=== PATIENT | male | born 1965 | race Caucasian/White ===

== ENCOUNTER 2025-03-01 13:01 | Emergency (ER) | payer BC, MEDICARE ==
[~2025-03-01 13:01] MED LIST: Iopamidol-370 76% 500 ML MDV (1 ML CHARGE) ONE
[2025-03-01] MEDS ORDERED: Prochlorperazine 10 MG/2 ML VIAL ONE (13:38)
[2025-03-01 13:54] LABS: #Basophils Less than 0.03 10x3/uL (0.0-0.2); #Eosinophils 0.11 10x3/uL (0.0-0.7); #Monocytes 0.37 10x3/uL (0.11-0.59); #Neutrophils 7.26 10x3/uL (1.40-6.50); %Basophils 0.2 % (0.0-1.0); %Eosinophils 1.3 % (0.0-10.0); %Lymphocytes 4.4 % (21.0-51.0); %Monocytes 4.5 % (0.0-10.0); %Neutrophils 89.1 % (42.0-75.0); Hematocrit 48.4 % (42.0-52.0); Hemoglobin 15.2 g/dL (14.0-18.0); Mean Corpuscular Hemoglobin 26.5 pg (27.0-31.0); Mean Corpuscular Volume 84.5 fL (78.0-98.0); Platelet Count 116 10x3/uL (130-400); Red Blood Cell (RBC) Count 5.73 mill/uL (4.70-6.10); White Blood Cell (WBC) Count 8.16 10x3/uL (4.8-10.8)
[2025-03-01 14:00] LABS: ALT (SGPT) 226 U/L (Less than 45); AST (SGOT) 161 U/L (11-34); Albumin 3.1 g/dL (3.1-4.5); Alkaline Phosphatase 135 U/L (40-110); Anion Gap 17 mmol/L (10-20); BUN (Urea Nitrogen) 23 mg/dL (8.4-25.7); Bilirubin, Total 2.0 mg/dL (0.3-1.2); Calc. Creatinine Clearance 0 mL/min (70-130); Calcium 10.1 mg/dL (7.8-10.44); Carbon Dioxide 26 mmol/L (22-29); Chloride 99 mmol/L (98-107); Globulin 4.4 g/dL (2.4-3.5); Glucose 274 mg/dL (70-105); Lipase 27 U/L (8-78); Potassium 4.0 mmol/L (3.5-5.1); Sodium 138 mmol/L (136-145)
[2025-03-01 14:24] LABS: Macrocytosis SLIGHT = 6-15 cells HPF (0-5); Platelet Adequacy Comment Platelets Decreased; Polychromasia SLIGHT = 2-3 cells HPF (0-2)
== END 2025-03-01 17:43 | disposition home or self-care (01) ==
LOC: ERS 13:01
DX: R51.9 Headache, unspecified (principal); R94.5 Abnormal results of liver function studies; R03.0 Elevated blood-pressure reading, without diagnosis of hypertension; E11.22 Type 2 diabetes mellitus with diabetic chronic kidney disease; N18.4 Chronic kidney disease, stage 4 (severe); R29.700 NIHSS score 0; D69.6 Thrombocytopenia, unspecified; I25.2 Old myocardial infarction; Z79.4 Long term (current) use of insulin; Z79.85 Long-term (current) use of injectable non-insulin antidiabetic drugs; Z79.899 Other long term (current) drug therapy; Z79.82 Long term (current) use of aspirin; Z79.01 Long term (current) use of anticoagulants
CPT/HCPCS: 70496; 70498; 71045; 74177; 76705; 80053; 83605; 83690; 85025; 87040; 87077; 87149 ×2; 87186; 87428; 93005; 96365; 99284; J0780; Q9967